=== PATIENT | male | born 1945 | race Caucasian/White ===

== ENCOUNTER → 2020-06-25 | Outpatient (CLI) | payer MEDICARE, BC ==
--- NOTE | 2020-06-25 15:24 | NM ---
EXAMINATION TYPE: NM bone scan whole body DATE OF EXAM: 06/25/2020 COMPARISON: NONE HISTORY: Prostate cancer Delayed whole-body scanning was performed following the injection of 25.9 mCi Tc 99m MDP. Images acq uired 4 hours post injection. FINDINGS: Abnormal uptake involving the sternoclavicular joints bilaterally. Uptake seen in the pelvis could be within the bladder. Contamination artifact seen in the perineum. Abnormal uptake involving the feet and shoulders likely post arthritic Abnormal uptake involving the maxilla and mandible likely related to periodontal disease. Photopenic defects involving the knees compatible with previous surgery. Nonspecific uptake overlying the lower neck on the AP view. IMPRESSION: 1. Faint uptake throughout the vertebral column likely degenerative. 2. Nonspecific pelvic uptake appears outside of the sacrum on the oblique images. Possibly representi ng residual tracer within the bladder. 3. Abnormal uptake involving the sternoclavicular region bilaterally likely post arthritic. 4. No diagnostic evidence of metastases.
== END | disposition home or self-care (01) ==
LOC: RADNMMAIN 09:53
PROVIDERS: ATTEND Urology
DX: C61 Malignant neoplasm of prostate (principal); C64.9 Malignant neoplasm of unspecified kidney, except renal pelvis; R93.7 Abnormal findings on diagnostic imaging of other parts of musculoskeletal system
CPT/HCPCS: 78306; A9503

== ENCOUNTER 2020-10-10 19:49 | Emergency (ER) | payer MEDICARE, BC ==
[2020-10-10] MEDS ORDERED: SODIUM CHLORIDE 0.9% 1,000 ML IV STA ×2 (20:14)
--- NOTE | 2020-10-10 20:26 | ED ---
Male Urogenital HPI - General Source: patient, family, RN notes reviewed, old records reviewed Mode of arrival: ambulatory Limitations: no limitations <Agnieszka Olivo - Last Filed: 10/10/20 21:54> <Wilman Saravia - Last Filed: 10/10/20 22:05> - General Chief complaint: Urogenital Stated complaint: Blood in urine Time Seen by Provider: 10/10/20 20:03 - Related Data Previous Rx's Medication Instructions Recorded Ciprofloxacin HCl [Cipro] 500 mg PO Q12HR 10 Days #20 tab 10/10/20 Allergies Allergy/AdvReac Type Severity Reaction Status Date / Time No Known Allergies Allergy Verified 10/10/20 19:59 Review of Systems ROS Other: All systems not noted in ROS Statement are negative. <Agnieszka Olivo - Last Filed: 10/10/20 21:54> ROS Other: All systems not noted in ROS Statement are negative. <Wilman Saravia - Last Filed: 10/10/20 22:05> ROS Statement: Those systems with pertinent positive or pertinent negative responses have been documented in the HPI. Past Medical History Past Medical History: Cancer, Diabetes Mellitus, Hyperlipidemia, Hypertension Additional Past Medical History / Comment(s): one kidney, History of Any Multi-Drug Resistant Organisms: None Reported Past Surgical History: Joint Replacement Additional Past Surgical History / Comment(s): one kindey, Past Psychological History: No Psychological Hx Reported Smoking Status: Never smoker Past Alcohol Use History: Rare Past Drug Use History: None Reported <Agnieszka Olivo - Last Filed: 10/10/20 21:54> General Exam Limitations: no limitations <Agnieszka Olivo - Last Filed: 10/10/20 21:54> Course <Wilman Saravia - Last Filed: 10/10/20 22:05> Vital Signs 10/10/20 10/10/20 10/10/20 19:54 20:09 20:29 Temperature 99.9 F H 101.7 F H 101.3 F H Pulse Rate 104 H 102 H Pulse Rate [ Apical] Respiratory 18 16 Rate Blood Pressure 155/85 145/75 O2 Sat by Pulse 97 96 Oximetry 10/10/20 10/10/20 10/10/20 20:34 20:53 21:11 Temperature 101.0 F H Pulse Rate 101 H 95 Pulse Rate [ 102 H Apical] Respiratory 16 16 Rate Blood Pressure 147/74 O2 Sat by Pulse 96 95 Oximetry 10/10/20 21:57 Temperature 100.1 F H Pulse Rate 101 H Pulse Rate [ Apical] Respiratory 16 Rate Blood Pressure 138/77 O2 Sat by Pulse 96 Oximetry - Reevaluation(s) Reevaluation #1: 10/10/20 22:04 PA supervision: I proceeded [id number] evaluation the patient did present with complaint dysuria and blood in his urine. He does have a history of a nephrectomy in past time. He denies any other symptoms at this time of my examination. He does have evidence of UTI who we placed on appropriate antibiotics and return parameters were discussed. The patient will be discharged to follow-up with his doctor and return if needed (Wilman Saravia) Medical Decision Making - Lab Data Result diagrams: 10/10/20 20:29 10/10/20 20:29 <Agnieszka Olivo - Last Filed: 10/10/20 21:54> - Lab Data Result diagrams: 10/10/20 20:29 10/10/20 20:29 <Wilman Saravia - Last Filed: 10/10/20 22:05> - Lab Data Lab Results 10/10/20 10/10/20 10/10/20 Range/Units 20:29 20:29 20:29 WBC 5.0 (3.8-10.6) k/uL RBC 4.82 (4.30-5.90) m/uL Hgb 15.0 (13.0-17.5) gm/dL Hct 45.8 (39.0-53.0) % MCV 95.1 (80.0-100.0) fL MCH 31.2 (25.0-35.0) pg MCHC 32.8 (31.0-37.0) g/dL RDW 13.6 (11.5-15.5) % Plt Count 172 (150-450) k/uL MPV 8.9 Neutrophils % 80 % Lymphocytes % 8 % Monocytes % 7 % Eosinophils % 1 % Basophils % 2 % Neutrophils # 4.0 (1.3-7.7) k/uL Lymphocytes # 0.4 L (1.0-4.8) k/uL Monocytes # 0.3 (0-1.0) k/uL Eosinophils # 0.1 (0-0.7) k/uL Basophils # 0.1 (0-0.2) k/uL Sodium 139 (137-145) mmol/L Potassium 4.7 (3.5-5.1) mmol/L Chloride 103 (98-107) mmol/L Carbon Dioxide 30 (22-30) mmol/L Anion Gap 6 mmol/L BUN 21 H (9-20) mg/dL Creatinine 1.37 H (0.66-1.25) mg/dL Est GFR (CKD-EPI)AfAm 58 (>60 ml/min/1.73 sqM) Est GFR (CKD-EPI)NonAf 50 (>60 ml/min/1.73 sqM) Glucose 112 H (74-99) mg/dL Plasma Lactic Acid Igor (0.7-2.0) mmol/L Calcium 10.0 (8.4-10.2) mg/dL Total Bilirubin 0.4 (0.2-1.3) mg/dL AST 29 (17-59) U/L ALT 22 (4-49) U/L Alkaline Phosphatase 62 (38-126) U/L Total Protein 6.7 (6.3-8.2) g/dL Albumin 4.0 (3.5-5.0) g/dL Amylase 50 (30-110) U/L Lipase 113 (23-300) U/L Urine Color Yellow Urine Appearance Clear (Clear) Urine pH 6.5 (5.0-8.0) Ur Specific [place] 1.017 (1.001-1.035) Urine Protein Trace H (Negative) Urine Glucose (UA) Negative (Negative) Urine Ketones Negative (Negative) Urine Blood Small H (Negative) Urine Nitrite Negative (Negative) Urine Bilirubin Negative (Negative) Urine Urobilinogen <2.0 (<2.0) mg/dL Ur Leukocyte Esterase Moderate H (Negative) Urine RBC 47 H (0-5) /hpf Urine WBC 41 H (0-5) /hpf Ur Squamous Epith Cells <1 (0-4) /hpf Urine Bacteria Rare H (None) /hpf Urine Mucus Rare H (None) /hpf 10/10/20 Range/Units 20:29 WBC (3.8-10.6) k/uL RBC (4.30-5.90) m/uL Hgb (13.0-17.5) gm/dL Hct (39.0-53.0) % MCV (80.0-100.0) fL MCH (25.0-35.0) pg MCHC (31.0-37.0) g/dL RDW (11.5-15.5) % Plt Count (150-450) k/uL MPV Neutrophils % % Lymphocytes % % Monocytes % % Eosinophils % % Basophils % % Neutrophils # (1.3-7.7) k/uL Lymphocytes # (1.0-4.8) k/uL Monocytes # (0-1.0) k/uL Eosinophils # (0-0.7) k/uL Basophils # (0-0.2) k/uL Sodium (137-145) mmol/L Potassium (3.5-5.1) mmol/L Chloride (98-107) mmol/L Carbon Dioxide (22-30) mmol/L Anion Gap mmol/L BUN (9-20) mg/dL Creatinine (0.66-1.25) mg/dL Est GFR (CKD-EPI)AfAm (>60 ml/min/1.73 sqM) Est GFR (CKD-EPI)NonAf (>60 ml/min/1.73 sqM) Glucose (74-99) mg/dL Plasma Lactic Acid Igor 1.5 (0.7-2.0) mmol/L Calcium (8.4-10.2) mg/dL Total Bilirubin (0.2-1.3) mg/dL AST (17-59) U/L ALT (4-49) U/L Alkaline Phosphatase (38-126) U/L Total Protein (6.3-8.2) g/dL Albumin (3.5-5.0) g/dL Amylase (30-110) U/L Lipase (23-300) U/L Urine Color Urine Appearance (Clear) Urine pH (5.0-8.0) Ur Specific [place] (1.001-1.035) Urine Protein (Negative) Urine Glucose (UA) (Negative) Urine Ketones (Negative) Urine Blood (Negative) Urine Nitrite (Negative) Urine Bilirubin (Negative) Urine Urobilinogen (<2.0) mg/dL Ur Leukocyte Esterase (Negative) Urine RBC (0-5) /hpf Urine WBC (0-5) /hpf Ur Squamous Epith Cells (0-4) /hpf Urine Bacteria (None) /hpf Urine Mucus (None) /hpf Disposition Is patient prescribed a controlled substance at d/c from ED?: No Time of Disposition: 21:55 <Agnieszka Olivo - Last Filed: 10/10/20 21:54> <Wilman Saravia - Last Filed: 10/10/20 22:05> Clinical Impression: UTI (urinary tract infection) Disposition: HOME SELF-CARE Condition: Good Instructions (If sedation given, give patient instructions): Urinary Tract Infection in Men (ED) Additional Instructions: Take medications as prescribed. Return to the ED if any alarming signs or symptoms occur. Take Motrin or Tylenol for pain or fever follow-up with your primary care doctor within the next 1-2 days.. Prescriptions: Ciprofloxacin HCl [Cipro] 500 mg PO Q12HR 10 Days #20 tab Referrals: Rosmery Lang MD [Primary Care Provider] - 1-2 days
[2020-10-10 20:30] VITALS: RESP 16
[2020-10-10 20:39] LABS: Basophils # (A) 0.1 k/uL (0-0.2); Basophils % (A) 2 %; Eosinophils # (A) 0.1 k/uL (0-0.7); Eosinophils % (A) 1 %; HCT 45.8 % (39.0-53.0); Lymphocytes # (A) 0.4 k/uL (1.0-4.8); Lymphocytes % (A) 8 %; MCH 31.2 pg (25.0-35.0); MCHC 32.8 g/dL (31.0-37.0); MCV 95.1 fL (80.0-100.0); Mean Platelet Volume 8.9; Monocytes # (A) 0.3 k/uL (0-1.0); Monocytes % (A) 7 %; Neutrophils % (A) 80 %; Platelet Count 172 k/uL (150-450); RBC 4.82 m/uL (4.30-5.90); RDW 13.6 % (11.5-15.5)
[2020-10-10 20:41] LABS: Appearance,Urine Clear (Clear); Bacteria,Urine Rare /hpf; Bilirubin,Urine Negative (Negative); Blood,Urine Small (Negative); Color,Urine Yellow; Glucose,Urine (UA) Negative (Negative); Ketones,Urine Negative (Negative); Leukocyte Esterase,Urine Moderate (Negative); Mucus,Urine Rare /hpf; Nitrite,Urine Negative (Negative); PH, Urine 6.5 (5.0-8.0); Protein,Urine Trace (Negative); RBC,Urine 47 /hpf (0-5); Specific Gravity,Urine 1.017 (1.001-1.035); Squamous Epithelial Cell,Urine <1 /hpf (0-4); Urobilinogen,Urine <2.0 mg/dL (<2.0); WBC,Urine 41 /hpf (0-5)
[2020-10-10 20:53] LABS: Potassium 4.7 mmol/L (3.5-5.1); Total Bilirubin 0.4 mg/dL (0.2-1.3); Total Protein 6.7 g/dL (6.3-8.2)
[2020-10-10] MEDS ORDERED: ACETAMINOPHEN TAB 500 MG TAB PO STA (21:56)
[2020-10-10] MEDS ORDERED: IBUPROFEN 600 MG TAB PO STA (21:57)
[2020-10-10 21:58] VITALS: BP 138/77; PULSE 101; TEMP 100.1
== END 2020-10-10 22:05 | disposition home or self-care (01) ==
LOC: EC 19:49
DX: N39.0 Urinary tract infection, site not specified (principal); Z96.60 Presence of unspecified orthopedic joint implant; Z90.5 Acquired absence of kidney; Z85.528 Personal history of other malignant neoplasm of kidney
CPT/HCPCS: 36415; 80053; 82150; 83605; 83690; 85025; 81001; 87040; 87086; 87077; 87186; 99284; 96365; 96361; J0696

== ENCOUNTER → 2021-06-01 | Outpatient (CLI) | payer MEDICARE, BC | END | disposition home or self-care (01) | LOC: LABWHC1 08:28 | PROVIDERS: ATTEND Urology | DX: C61 Malignant neoplasm of prostate (principal) | CPT/HCPCS: 36415; 84153 ==

== ENCOUNTER → 2022-07-15 | Outpatient (CLI) | payer MEDICARE, BC | END | disposition home or self-care (01) | LOC: LABWHC1 08:49 | PROVIDERS: ATTEND Urology | DX: C61 Malignant neoplasm of prostate (principal) | CPT/HCPCS: 36415; 84153 ==

== ENCOUNTER → 2023-07-25 | Outpatient (CLI) | payer MEDICARE, BC | END | disposition home or self-care (01) | LOC: LABWHC1 09:45 | PROVIDERS: ATTEND Urology | DX: C61 Malignant neoplasm of prostate (principal) | CPT/HCPCS: 36415; 84153 ==

== ENCOUNTER → 2025-02-16 | Outpatient (CLI) | payer MEDICARE, BC | END | disposition home or self-care (01) | LOC: LABWHC1 10:12 | PROVIDERS: ATTEND Urology | DX: C61 Malignant neoplasm of prostate (principal) | CPT/HCPCS: 36415; 84153 ==